=== PATIENT | female | born 1990 | race American Indian/Alaskan Native ===

== ENCOUNTER 2017-12-09 13:14 | Outpatient (CLI) | payer OTHER ==
--- NOTE | 2017-12-09 14:54 | Fluoroscopy Report ---
UPPER GI SERIES WITH AIR-CONTRAST History: Gastroesophageal reflux disease without esophagitis Findings: No comparison. Straw [employer] Brusher film of the abdomen demonstrates a normal bowel gas pattern. A LAP band is identified which appears in good position. Deglutition is normal. No aspiration. The esophagus is normal caliber and mucosal pattern. No hiatal hernia was witnessed. There is significant delay in emptying of the esophagus through the LAP band into the stomach. In my opinion, the LAP band appears to be too tight. There is no evidence for slippage or ulceration. The gastric cavity and duodenal sweep are within normal limits. Impression: Delayed emptying of esophagus through the LAP band as described above. No evidence for slippage or mucosal defect. No reflux was witnessed during this exam.
== END 2017-12-09 13:15 | disposition home or self-care (01) ==
LOC: FLUORO 13:14
PROVIDERS: ATTEND Specialist
DX: K21.9 Gastro-esophageal reflux disease without esophagitis (principal); K30 Functional dyspepsia
CPT/HCPCS: 74247